=== PATIENT | female | born 1965 | race Caucasian/White ===

== ENCOUNTER 2020-10-21 17:51 | Inpatient (IN) | payer MEDICAID, OTHER ==
[~2020-10-21] VITALS: Ht 167.6 cm; Wt 71.3 kg
[2020-10-21 21:08] LABS: Eosinophils # (auto) 0.1 10 ^3/uL (0-0.8); Hemoglobin 14.1 g/dL (12.2-16.2); Lymphocytes # (auto) 2.8 10 ^3/uL (0.4-5.4); Monocytes # (auto) 0.9 10 ^3/uL (0-1.3); Red Blood Cells 4.09 10^6/uL (4.0-5.20)
[2020-10-21 21:09] LABS: Basophils # (auto) 0.1 10 ^3/uL (0-0.2); Basophils % (auto) 0.6 % (0.0-2.0); Eosinophils % (auto) 1.5 % (0.0-7.0); Hematocrit 41.2 % (36.0-46.0); Lymphocytes % (auto) 32.9 % (10.0-50.0); Mean Corpuscular Hemoglobin 34.6 pg (28.0-32.0); Mean Corpuscular Hgb Conc. 34.3 g/dL (32.0-36.0); Mean Corpuscular Volume 100.7 fL (80.0-100.0); Monocytes % (auto) 10.6 % (0.0-12.0); Neutrophils # (auto) 4.7 10 ^3/uL (1.6-8.6); Neutrophils % (auto) 54.4 % (37.0-80.0); Nucleated Red Blood Cells % 0.1 %; Platelet Count (auto) 246 10^3/uL (140-450); Red Cell Distribution Width 13.3 % (11.8-14.3); White Blood Cell 8.6 10^3/uL (4.4-10.8)
[2020-10-21 21:23] LABS: Anion Gap 6 (5-15); Blood Urea Nitrogen 17 mg/dL (7-18); Calcium 8.8 mg/dL (8.5-10.1); Carbon Dioxide 24 mmol/L (21-32); Chloride 106 mmol/L (98-107); Glucose 77 mg/dL (74-106); Magnesium 2.2 mg/dL (1.6-2.6); Potassium 4.5 mmol/L (3.5-5.1); Sodium 136 mmol/L (136-145)
[2020-10-21 21:25] LABS: INR 1.01 (0.9-1.15); Partial Thromboplastin Time 26.4 sec (23.0-31.2)
[2020-10-21 21:29] LABS: Alanine Aminotransferase 18 U/L (13-56); Alkaline Phosphatase 50 U/L (45-117); Aspartate Aminotransferase 17 U/L (15-37); BUN/Creatinine Ratio 20.7; Bilirubin, Total 0.5 mg/dL (0.2-1.0); GFR African American 93 mL/min; GFR Non-African American 77 mL/min; Total Protein 7.9 g/dL (6.4-8.2)
[2020-10-22] MEDS ORDERED: MORPHINE SULF INJ 2 MG/ML SYRINGE 1ML IV PRN
[2020-10-22] MEDS ORDERED: NITROGLYCERIN 0.4 MG SL TAB SL PRN
[2020-10-22] MEDS ORDERED: DOXYCYCLINE 100MG/250ML 250 ML IV SCH (00:15)
[2020-10-22] MEDS ORDERED: ACETAMINOPHEN 325 MG TAB PO PRN (00:15)
[2020-10-22] MEDS ORDERED: ALBUTEROL SULF HFA 90MCG INH 200DOSE IN SCH (06:00)
[2020-10-22] MEDS ORDERED: AMIODARONE 450mg/250ml AE 250 ML IV SCH (08:00)
[2020-10-22] MEDS ORDERED: HYDROcodone-ACET 10/325MG TAB PO ONE (10:30)
[2020-10-22] MEDS ORDERED: HYDROcodone-ACET 5/325MG TAB PO ONE (11:30)
[2020-10-22] MEDS: BUDESONIDE (INHALATION) 0.5 MG/2 ML NEB NEB SCH ×2 (12:49→22:00)
[2020-10-22] MEDS: AMIODARONE 450mg/250ml AE 250 ML IV SCH (14:17)
[2020-10-22] MEDS: DOXYCYCLINE 100MG/250ML 250 ML IV SCH (18:10)
[2020-10-22] MEDS ORDERED: HYDR-4795 PO (18:28)
[2020-10-22] MEDS ORDERED: METO25TA5 PO (18:28)
[2020-10-22] MEDS ORDERED: METH750T3 PO (18:28)
[2020-10-22] MEDS ORDERED: DRON400T PO (18:28)
[2020-10-22] MEDS ORDERED: TRAZ100T3 PO (18:28)
[2020-10-22] MEDS: ATORVASTATIN 20 MG TAB PO SCH (21:10)
[2020-10-22] MEDS: HYDROmorphone HCL 2 MG/ML VL IV PRN (22:10)
[2020-10-22] MEDS: traZODone HCL 50 MG TAB PO SCH (22:10)
[2020-10-22 23:38] VITALS: BP 106/42
[2020-10-23] MEDS: HYDROmorphone HCL 2 MG/ML VL IV PRN ×3 (04:42→20:20)
[2020-10-23] MEDS: AMIODARONE 450mg/250ml AE 250 ML IV SCH (05:00)
[2020-10-23 05:15] VITALS: BP 105/73
[2020-10-23] MEDS: DOXYCYCLINE 100MG/250ML 250 ML IV SCH ×2 (05:38→18:30)
[2020-10-23 06:00] LABS: Basophils # (auto) 0 10 ^3/uL (0-0.2); Eosinophils # (auto) 0.2 10 ^3/uL (0-0.8); Hematocrit 36.6 % (36.0-46.0); Hemoglobin 12.3 g/dL (12.2-16.2); Mean Corpuscular Hgb Conc. 33.6 g/dL (32.0-36.0); Monocytes # (auto) 0.7 10 ^3/uL (0-1.3); Nucleated Red Blood Cells % 0.1 %; White Blood Cell 7.3 10^3/uL (4.4-10.8)
[2020-10-23 06:02] LABS: Basophils % (auto) 0.5 % (0.0-2.0); Eosinophils % (auto) 2.3 % (0.0-7.0); Lymphocytes # (auto) 2.1 10 ^3/uL (0.4-5.4); Lymphocytes % (auto) 29.1 % (10.0-50.0); Mean Corpuscular Hemoglobin 34.2 pg (28.0-32.0); Mean Corpuscular Volume 101.8 fL (80.0-100.0); Monocytes % (auto) 9.3 % (0.0-12.0); Neutrophils # (auto) 4.3 10 ^3/uL (1.6-8.6); Neutrophils % (auto) 58.8 % (37.0-80.0); Platelet Count (auto) 201 10^3/uL (140-450); Red Blood Cells 3.59 10^6/uL (4.0-5.20); Red Cell Distribution Width 13.1 % (11.8-14.3)
[2020-10-23 06:19] LABS: Anion Gap 5 (5-15); Blood Urea Nitrogen 15 mg/dL (7-18); Calcium 8.3 mg/dL (8.5-10.1); Carbon Dioxide 26 mmol/L (21-32); Chloride 107 mmol/L (98-107); Glucose 90 mg/dL (74-106); Potassium 4.1 mmol/L (3.5-5.1); Sodium 138 mmol/L (136-145)
[2020-10-23 06:25] LABS: GFR African American 133 mL/min; GFR Non-African American 110 mL/min
[2020-10-23 08:00] VITALS: BP 130/86
[2020-10-23] MEDS ORDERED: LIDOCAINE 2%HCL (LOCAL ANESTH.) INJ 20ML MDV ONE (08:02)
[2020-10-23] MEDS ORDERED: ANGIOMAX 250 MG VIAL IV ONE (08:04)
[2020-10-23] MEDS ORDERED: HEPARIN SODIUM (PORCINE) 5000 UNITS/ML 1ML VIAL ONE (08:04)
[2020-10-23] MEDS ORDERED: fentaNYL CITRATE 100 MCG/2 ML VL ONE (08:05)
[2020-10-23] MEDS ORDERED: VERAPAMIL 2.5MG/ML INJ 2ML VIAL IV ONE (08:05)
[2020-10-23] MEDS ORDERED: NITROGLYCERIN 5MG/ML 10ML VIAL IV ONE (08:06)
[2020-10-23] MEDS ORDERED: SODIUM CHL 0.9% 0 ML ONE (08:06)
[2020-10-23] MEDS ORDERED: MIDAZOLAM HCL 1MG/1ML-2 ML VIAL ONE (08:06)
[2020-10-23] MEDS ORDERED: METOCLOPRAMIDE HCL 5MG/ml INJ 2ml VIAL ONE (08:35)
[2020-10-23] MEDS: SOTALOL HCL 80 MG TAB PO SCH ×2 (11:47→22:19)
[2020-10-23 16:00] VITALS: BP 108/58
[2020-10-23] MEDS: HYDROcodone-ACET 7.5/325MG TAB PO PRN (16:46)
[2020-10-23] MEDS: BUDESONIDE (INHALATION) 0.5 MG/2 ML NEB NEB SCH (18:08)
[2020-10-23] MEDS ORDERED: LORazepam 2MG/ML-1ML VIAL IV PRN (20:45)
[2020-10-23] MEDS: ATORVASTATIN 20 MG TAB PO SCH (22:18)
[2020-10-23] MEDS: traZODone HCL 50 MG TAB PO SCH (22:18)
[2020-10-24 00:19] VITALS: BP 109/66
[2020-10-24] MEDS: HYDROmorphone HCL 2 MG/ML VL IV PRN ×5 (01:06→23:13)
[2020-10-24] MEDS: DOXYCYCLINE 100MG/250ML 250 ML IV SCH ×2 (05:34→18:00)
[2020-10-24 06:20] VITALS: BP 101/65
[2020-10-24] MEDS: BUDESONIDE (INHALATION) 0.5 MG/2 ML NEB NEB SCH ×2 (06:50→20:02)
[2020-10-24 07:05] LABS: Basophils # (auto) 0 10 ^3/uL (0-0.2); Basophils % (auto) 0.5 % (0.0-2.0); Red Cell Distribution Width 13.3 % (11.8-14.3)
[2020-10-24 07:07] LABS: Eosinophils # (auto) 0.1 10 ^3/uL (0-0.8); Eosinophils % (auto) 2.3 % (0.0-7.0); Hematocrit 39.5 % (36.0-46.0); Hemoglobin 13.1 g/dL (12.2-16.2); Lymphocytes # (auto) 2.5 10 ^3/uL (0.4-5.4); Lymphocytes % (auto) 39.7 % (10.0-50.0); Mean Corpuscular Hemoglobin 34.2 pg (28.0-32.0); Mean Corpuscular Hgb Conc. 33.2 g/dL (32.0-36.0); Mean Corpuscular Volume 103.1 fL (80.0-100.0); Monocytes # (auto) 0.5 10 ^3/uL (0-1.3); Monocytes % (auto) 8.3 % (0.0-12.0); Neutrophils # (auto) 3.1 10 ^3/uL (1.6-8.6); Neutrophils % (auto) 49.2 % (37.0-80.0); Nucleated Red Blood Cells % 0.2 %; Platelet Count (auto) 179 10^3/uL (140-450); Red Blood Cells 3.83 10^6/uL (4.0-5.20); White Blood Cell 6.3 10^3/uL (4.4-10.8)
[2020-10-24 08:13] LABS: BUN/Creatinine Ratio 26.4; Calcium 8.7 mg/dL (8.5-10.1); Potassium 5.4 mmol/L (3.5-5.1)
[2020-10-24 08:30] VITALS: BP 109/65
[2020-10-24] MEDS: SOTALOL HCL 80 MG TAB PO SCH ×2 (12:01→22:24)
[2020-10-24 16:30] VITALS: BP 108/70
[2020-10-24] MEDS: traZODone HCL 50 MG TAB PO SCH (22:23)
[2020-10-24] MEDS: ATORVASTATIN 20 MG TAB PO SCH (22:23)
[2020-10-25] VITALS: BP 99/62
[2020-10-25] MEDS: HYDROmorphone HCL 2 MG/ML VL IV PRN ×6 (04:34→23:20)
[2020-10-25 05:00] VITALS: BP 105/61
[2020-10-25] MEDS: DOXYCYCLINE 100MG/250ML 250 ML IV SCH ×2 (05:07→18:00)
[2020-10-25] MEDS: LEVALBUTEROL HCL 1.25 MG/3 ML NEB NEB PRN (06:40)
[2020-10-25] MEDS: BUDESONIDE (INHALATION) 0.5 MG/2 ML NEB NEB SCH ×2 (06:40→18:40)
[2020-10-25 08:00] VITALS: BP 115/65
[2020-10-25 08:52] LABS: Basophils # (auto) 0 10 ^3/uL (0-0.2); Basophils % (auto) 0.5 % (0.0-2.0); Eosinophils # (auto) 0.2 10 ^3/uL (0-0.8); Eosinophils % (auto) 2.6 % (0.0-7.0); Hematocrit 38.1 % (36.0-46.0); Hemoglobin 12.8 g/dL (12.2-16.2); Lymphocytes # (auto) 2.4 10 ^3/uL (0.4-5.4); Lymphocytes % (auto) 31.2 % (10.0-50.0); Mean Corpuscular Hemoglobin 33.8 pg (28.0-32.0); Mean Corpuscular Hgb Conc. 33.6 g/dL (32.0-36.0); Mean Corpuscular Volume 100.6 fL (80.0-100.0); Monocytes # (auto) 0.7 10 ^3/uL (0-1.3); Monocytes % (auto) 9.7 % (0.0-12.0); Neutrophils # (auto) 4.2 10 ^3/uL (1.6-8.6); Nucleated Red Blood Cells % 0.1 %; Platelet Count (auto) 204 10^3/uL (140-450); Red Blood Cells 3.79 10^6/uL (4.0-5.20); Red Cell Distribution Width 12.9 % (11.8-14.3); White Blood Cell 7.6 10^3/uL (4.4-10.8)
[2020-10-25 09:15] LABS: Calcium 8.8 mg/dL (8.5-10.1); Potassium 4.2 mmol/L (3.5-5.1)
[2020-10-25] MEDS: SOTALOL HCL 80 MG TAB PO SCH ×2 (09:22→22:20)
[2020-10-25 16:00] VITALS: BP 91/56
[2020-10-25] MEDS: ATORVASTATIN 20 MG TAB PO SCH (22:20)
[2020-10-25] MEDS: traZODone HCL 50 MG TAB PO SCH (22:20)
[2020-10-26] VITALS: BP 102/61
[2020-10-26] MEDS: HYDROmorphone HCL 2 MG/ML VL IV PRN ×4 (04:22→20:12)
[2020-10-26 05:00] VITALS: BP 102/66
[2020-10-26] MEDS: DOXYCYCLINE 100MG/250ML 250 ML IV SCH ×2 (05:38→16:47)
[2020-10-26] MEDS ORDERED: SODIUM CHLORIDE 0.9% 1,000 ML IV ONE (06:30)
[2020-10-26 07:02] LABS: BUN/Creatinine Ratio 28.8; Calcium 8.8 mg/dL (8.5-10.1); Potassium 4.1 mmol/L (3.5-5.1)
[2020-10-26 07:04] LABS: Basophils # (auto) 0 10 ^3/uL (0-0.2); Basophils % (auto) 0.4 % (0.0-2.0); Eosinophils # (auto) 0.3 10 ^3/uL (0-0.8); Eosinophils % (auto) 3.8 % (0.0-7.0); Hematocrit 39.1 % (36.0-46.0); Hemoglobin 13.1 g/dL (12.2-16.2); Lymphocytes # (auto) 2.6 10 ^3/uL (0.4-5.4); Lymphocytes % (auto) 35.5 % (10.0-50.0); Mean Corpuscular Hemoglobin 33.8 pg (28.0-32.0); Mean Corpuscular Hgb Conc. 33.5 g/dL (32.0-36.0); Mean Corpuscular Volume 100.9 fL (80.0-100.0); Monocytes # (auto) 0.8 10 ^3/uL (0-1.3); Monocytes % (auto) 11.1 % (0.0-12.0); Neutrophils # (auto) 3.6 10 ^3/uL (1.6-8.6); Neutrophils % (auto) 49.2 % (37.0-80.0); Nucleated Red Blood Cells % 0.1 %; Platelet Count (auto) 217 10^3/uL (140-450); Red Blood Cells 3.88 10^6/uL (4.0-5.20); Red Cell Distribution Width 12.8 % (11.8-14.3); White Blood Cell 7.2 10^3/uL (4.4-10.8)
[2020-10-26] MEDS ORDERED: LIDOCAINE 2%HCL (LOCAL ANESTH.) INJ 20ML MDV ONE (07:36)
[2020-10-26] MEDS ORDERED: IODIXANOL 320MG/ML 100ML BTL IV ONE (07:38)
[2020-10-26] MEDS ORDERED: VANCOMYCIN HCL 1000 MG VL ONE (07:53)
[2020-10-26] MEDS ORDERED: BACITRACIN INJ 50000 UNIT VIAL ONE (07:53)
[2020-10-26 08:00] VITALS: BP 115/64
[2020-10-26] MEDS ORDERED: VANCOMYCIN 1GM/250ML 250 ML IV ONE (08:19)
[2020-10-26] MEDS ORDERED: MIDAZOLAM HCL 1MG/1ML-2 ML VIAL ONE (08:19)
[2020-10-26] MEDS ORDERED: fentaNYL CITRATE 100 MCG/2 ML VL ONE (08:19)
[2020-10-26] MEDS ORDERED: ceFAZolin 1GM VL ONE (08:35)
[2020-10-26] MEDS ORDERED: HYDROcodone-ACET 5/325MG TAB PO PRN (09:30)
[2020-10-26] MEDS ORDERED: ACETAMINOPHEN 325 MG TAB PO PRN (09:30)
[2020-10-26] MEDS: VANCOMYCIN 1GM/250ML 250 ML IV SCH ×2 (09:55→22:15)
[2020-10-26] MEDS: BUDESONIDE (INHALATION) 0.5 MG/2 ML NEB NEB SCH ×2 (10:00→18:10)
[2020-10-26] MEDS: SOTALOL HCL 80 MG TAB PO SCH ×2 (11:13→22:15)
[2020-10-26] MEDS: LEVALBUTEROL HCL 1.25 MG/3 ML NEB NEB PRN (11:43)
[2020-10-26] MEDS ORDERED: DOXYCYCLINE 100MG/250ML 250 ML IV SCH (14:00)
[2020-10-26 16:00] VITALS: BP 106/65
[2020-10-26 22:00] VITALS: BP 115/69
[2020-10-26] MEDS: traZODone HCL 50 MG TAB PO SCH (22:15)
[2020-10-26] MEDS: ATORVASTATIN 20 MG TAB PO SCH (22:16)
[2020-10-26] MEDS: HYDROcodone-ACET 7.5/325MG TAB PO PRN (22:16)
[2020-10-27 00:01] VITALS: BP 139/69
[2020-10-27] MEDS: HYDROcodone-ACET 7.5/325MG TAB PO PRN ×2 (02:02→12:36)
[2020-10-27 05:00] VITALS: BP 139/69
[2020-10-27] MEDS: DOXYCYCLINE 100MG/250ML 250 ML IV SCH (05:12)
[2020-10-27 08:00] VITALS: BP 97/62
[2020-10-27] MEDS ORDERED: VANCOMYCIN 1GM/250ML 250 ML IV ONE (08:45)
[2020-10-27] MEDS: HYDROmorphone HCL 2 MG/ML VL IV PRN (09:25)
[2020-10-27] MEDS: SOTALOL HCL 80 MG TAB PO SCH (09:26)
[2020-10-27 10:25] LABS: Basophils # (auto) 0 10 ^3/uL (0-0.2); Basophils % (auto) 0.5 % (0.0-2.0); Eosinophils # (auto) 0.2 10 ^3/uL (0-0.8); Eosinophils % (auto) 2.4 % (0.0-7.0); Hematocrit 35.9 % (36.0-46.0); Hemoglobin 11.9 g/dL (12.2-16.2); Lymphocytes # (auto) 1.3 10 ^3/uL (0.4-5.4); Lymphocytes % (auto) 20.7 % (10.0-50.0); Mean Corpuscular Hemoglobin 33.7 pg (28.0-32.0); Mean Corpuscular Hgb Conc. 33.2 g/dL (32.0-36.0); Mean Corpuscular Volume 101.5 fL (80.0-100.0); Monocytes # (auto) 0.5 10 ^3/uL (0-1.3); Monocytes % (auto) 7.9 % (0.0-12.0); Neutrophils # (auto) 4.3 10 ^3/uL (1.6-8.6); Neutrophils % (auto) 68.5 % (37.0-80.0); Platelet Count (auto) 170 10^3/uL (140-450); Red Blood Cells 3.53 10^6/uL (4.0-5.20); Red Cell Distribution Width 12.8 % (11.8-14.3); White Blood Cell 6.2 10^3/uL (4.4-10.8)
[2020-10-27 10:32] LABS: Calcium 8.4 mg/dL (8.5-10.1); Potassium 3.4 mmol/L (3.5-5.1)
[2020-10-27] MEDS ORDERED: DOXY-346 PO (14:57)
[2020-10-27] MEDS ORDERED: ATOR20TA50 PO (14:57)
[2020-10-27 15:49] VITALS: BP 108/67
[2020-10-27 17:10] VITALS: BP 108/67
== END 2020-10-27 18:35 | disposition home or self-care (01) | DRG 161 ==
LOC: ER 17:51 → TELE 10-22 → TELE-CENTR 10-22 17:24
PROVIDERS: ADMIT Hospitalist; ATTEND Hospitalist
PROC: B2111ZZ Fluoroscopy of Multiple Coronary Arteries using Low Osmolar Contrast (ICD-10-PCS; principal; 2020-10-23)
PROC: 4A023N7 Measurement of Cardiac Sampling and Pressure, Left Heart, Percutaneous Approach (ICD-10-PCS; 2020-10-23)
PROC: 4B02XTZ Measurement of Cardiac Defibrillator, External Approach (ICD-10-PCS; 2020-10-26)
PROC: 02HK3KZ Insertion of Defibrillator Lead into Right Ventricle, Percutaneous Approach (ICD-10-PCS; 2020-10-26)
PROC: 0JH608Z Insertion of Defibrillator Generator into Chest Subcutaneous Tissue and Fascia, Open Approach (ICD-10-PCS; 2020-10-26)
PROC: B5171ZZ Fluoroscopy of Left Subclavian Vein using Low Osmolar Contrast (ICD-10-PCS; 2020-10-26)
DX: I47.2 Ventricular tachycardia (principal); J18.9 Pneumonia, unspecified organism; E78.5 Hyperlipidemia, unspecified; I10 Essential (primary) hypertension; G47.00 Insomnia, unspecified; F17.200 Nicotine dependence, unspecified, uncomplicated; G47.33 Obstructive sleep apnea (adult) (pediatric); I42.8 Other cardiomyopathies; M06.9 Rheumatoid arthritis, unspecified; I48.91 Unspecified atrial fibrillation; M51.26 Other intervertebral disc displacement, lumbar region; E66.9 Obesity, unspecified; Z20.822 Contact with and (suspected) exposure to COVID-19; G89.29 Other chronic pain; J44.0 Chronic obstructive pulmonary disease with (acute) lower respiratory infection; M47.9 Spondylosis, unspecified; Z86.79 Personal history of other diseases of the circulatory system; Z95.0 Presence of cardiac pacemaker; Z88.8 Allergy status to other drugs, medicaments and biological substances; Z88.5 Allergy status to narcotic agent; Z90.49 Acquired absence of other specified parts of digestive tract; Z79.899 Other long term (current) drug therapy; Z79.891 Long term (current) use of opiate analgesic; Z79.01 Long term (current) use of anticoagulants
CPT/HCPCS: 36415; 70551; 71045; 71250; 80048; 84439; 84443; 84484; 85025; 85379; 86850; 86900; 86901; 93005; 93306; 94640; 96365; 96367; 99152; 99153; G0378; J0690; J2250; J3490; Q9967